=== PATIENT | female | born 1945 | race Caucasian/White ===

== ENCOUNTER 2016-06-04 06:20 | Day surgery (SDC) | payer MEDICARE ==
[~2016-06-04] VITALS: Ht 167.6 cm; Wt 55.0 kg
[~2016-06-04 06:20] MED LIST: LACTATED RINGERS 1,000 ML IV SCH; SODIUM CHLORIDE FLUSH 3 ML SYR IV PRN
[2016-06-04 06:33] VITALS: BP 137/85
[2016-06-04] MEDS ORDERED: MIDAZOLAM 2 MG/2 ML (VERSED) VIAL ONE (07:06)
[2016-06-04] MEDS ORDERED: ALFENTANIL 500 MCG/ML (ALFENTA) 5 ML AMP IV ONE (07:06)
[2016-06-04] MEDS ORDERED: PROPOFOL 20 ML IV ONE ×2 (07:09→08:20)
[2016-06-04] MEDS ORDERED: SCOPOLAMINE 1.5 MG (TRANSDERM-SCOP) PATCH TD ONE ×2 (07:15→07:30)
[2016-06-04] MEDS ORDERED: ONDANSETRON 2 MG/ML (Z0FRAN) 2 ML VIAL ONE (07:24)
[2016-06-04] MEDS ORDERED: diphenhydrAMINE 50 MG/ML INJ (BENADRYL) ONE (07:24)
[2016-06-04 09:10] VITALS: BP 160/78
[2016-06-04 09:37] VITALS: BP 121/65
== END 2016-06-04 09:44 | disposition home or self-care (01) ==
LOC: ASC 06:20
PROVIDERS: ATTEND Surgery
DX: Z12.11 Encounter for screening for malignant neoplasm of colon (principal); Q43.8 Other specified congenital malformations of intestine; Z85.828 Personal history of other malignant neoplasm of skin
CPT/HCPCS: A9270; G0121; J1200; J2250; J2405; J7120

== ENCOUNTER → 2016-07-12 | Outpatient (CLI) | payer MEDICARE ==
[~2016-07-12] MED LIST changes: +ASPI325T4 PO; +ATOR20TA PO; +CALC-701 PO; +CELE200C PO; +CEPH-331 PO; +DENO60DI SQ; +DIAZ10TA3 PO; +EST45C VG; +ESTR1TAB19 PO; -LACTATED RINGERS 1,000 ML IV SCH; +MELO-249 PO; +MULT-301 PO; +PRAV40TA2 PO; +PREG200C PO; -SODIUM CHLORIDE FLUSH 3 ML SYR IV PRN; +TIZA2CAP PO; +UBID300C PO; +VALS160T2 PO; +VIT1TABL86 PO
[2016-07-12 15:03] VITALS: BP 162/73
--- NOTE | 2016-07-12 15:03 | Urgent Care T Sheet Gen (E) ---
Intake General Temperature (Fahrenheit): 98.9 Pulse: 73 Blood Pressure Systolic: 162 Blood Pressure Diastolic: 73 Respirations: 18 SPO2: 99 Chief Complaint: UC Skin Condition Description of Symptoms Comes in for left cheek swelling, itch and bumpy x 7 days. Thought it was a bug bite maybe, no drainage no pustules no bleeding . She didnt see a bug or spider. Admits to working in yard and pulling weeds but no injury or trauma, it is warm and red to touch. Source: Patient History of Present Illness Onset & Duration: Days (x7) Timing: Still present Severity: Mild Recent Trauma: No Allergies: Coded Allergies: codeine (Verified Allergy, Mild, Nausea, 06/03/16) acetaminophen (Verified Allergy, Unknown, Nausea/Vomiting, 06/03/16) hydrocodone (Verified Allergy, Unknown, 06/03/16) propoxyphene (Verified Allergy, Unknown, Nausea/Vomiting, 06/03/16) tramadol (Verified Allergy, Unknown, Nausea/Vomiting, 06/03/16) Home Meds Reported Medications Pravastatin Sodium 40 Mg Wsurwe97 Mg PO DAILY 06/03/16 Diazepam 10 Mg Zvzhhx27 Mg PO DAILY 06/03/16 Calcium Carbonate (Calcium)500 Mg Tab.dckz733 Mg PO DAILY 06/03/16 Aspirin 325 Mg Xodorm263 Mg PO DAILY 06/03/16 Tizanidine HCl (Zanaflex)2 Mg Capsule2 Mg PO TID 06/03/16 Vit B Comp & C/Calcium Carb (Gnp B-Complex Tablet)1 Each Tablet1 Each PO DAILY 06/03/16 Denosumab (Prolia)60 Mg/1 Ml Disp.syrin60 Mg SQ q6mons 06/03/16 Estrogens,Conjugated (Premarin Vaginal Cream)45 Gm Cr45 Gm VG DAILY 06/03/16 Multivitamin (Multi-Day Vitamins)1 Each Tablet1 Each PO DAILY 06/03/16 Ubidecarenone (Co Q-10)300 Mg Ajvtuwq026 Mg PO DAILY 06/03/16 Celecoxib (Celebrex)200 Mg Xvynacf397 Mg PO BID 05/09/13 Atorvastatin (Lipitor)20 Mg Dkqlhg24 Mg PO HS 02/04/12 Pregabalin (Lyrica)200 Mg Kimtwjq787 Mg PO BID 02/04/12 Respiratory Constitutional Symptoms: No syptoms reported EENTM: No symptoms reported Respiratory: No symptoms reported Cardiovascular: No symptoms reported Gastrointestinal/Abdominal: No symptoms reported Skin: Rash (left cheek- red and warm bumpy) All Other Systems Reviewed Remaining Systems: All other systems reviewed with negative findings Past Gibjmsa-Nhyrsp-Ykpkhf Hx Patient's Social History Alcohol Use: Denies Use Recreational Drug Use: Denies Use Smoking Status: Never smoker Surgeries/Hospitalizations Hospitalization/Surgery Hx: Back surgeries x2, oopherectomy,egd colonoscopy Respiratory Respiratory History: None Cardiovascular Cardiovascular History: Hypertension, Palpitations, Varicose Veins, Hypercholesterolemia Neuro/Muscular Neuro/Muscular History: TIA, Arthirits, Back Problems, Cataracts Comment: sciatica, right side Genitouinary Genitourinary History: Frequency Gastrointestinal GI/Endocrine History: None Diabetes Diabetes: No HEENT Hearing Impaired: None Integumentary Integumentary History: None Cancer History of Cancer?: No Psychosocial Behavior Disorders: None Physical Exam Physical Exam General Appearance: WD/WN No apparent distress Eyes, Ears, Nose, Throat Ex: PERRL/EOMI Neck Exam: Full range of motion Supple Respiratory Exam: Lungs clear Normal breath sounds No respiratory distress Cardiovascular Exam: Regular rate, rhythm No murmur Skin Exam: Rash (left cheek slightly swollen, red and warm few small bumps no pustules, no blisters no drainage nontender no fluid fluctuation, no necrosis) Departure Urgent Care Impression Chief Complaint: UC Skin Condition Impression: Primary Impression: Infection of skin Departure Disposition: HOME OR SELF-CARE Condition: Stable Referrals: TRA SANTIAGO MD (PCP) Additional Instructions: Long talk with her- appears to be a cellulitis- due to redness and warmth Tylenol for pain or fever rest hydrate cool compresses May use OTC benadryl cream- avoid eyes f/u PCP if no improvement in next several days She agrees to plan of care Scripts Cephalexin (Keflex)500 Mg Tnlbmzm107 Mg PO BID Infection #14 CAP Ref 0 Prov:ROSALBA LAWS APRN () 07/12/16 End of report . ROSALBA LAWS APRN () Jul 12, 2016 15:03
== END ==
LOC: MHUC 14:42
PROVIDERS: ATTEND Nurse Practitioner
DX: L08.9 Local infection of the skin and subcutaneous tissue, unspecified (principal)
CPT/HCPCS: 99213